=== PATIENT | female | born 2005 | race Caucasian/White ===

== ENCOUNTER 2024-08-17 11:26 | Emergency (ER) | payer OTHER ==
[~2024-08-17] VITALS: Ht 172.7 cm; Wt 87.0 kg
[2024-08-17 11:53] VITALS: TEMP 97.9; O2SAT 98
[2024-08-17] MEDS ORDERED: MELO-104 MT (13:07)
[2024-08-17] MEDS: KETOROLAC 30MG/ML VIAL IM ONE (13:27)
[2024-08-17 13:29] VITALS: BP 124/67; PULSE 82; RESP 16; O2SAT 100
== END 2024-08-17 14:02 | disposition home or self-care (01) ==
LOC: ER 11:26
DX: M54.2 Cervicalgia (principal); M54.9 Dorsalgia, unspecified; V49.40XA Driver injured in collision with unspecified motor vehicles in traffic accident, initial encounter; Y93.9 Activity, unspecified; Y92.89 Other specified places as the place of occurrence of the external cause; Y99.9 Unspecified external cause status
CPT/HCPCS: 99283; 81025; 96372; J1885